=== PATIENT | male | born 1950 | race Caucasian/White ===

== ENCOUNTER 2023-06-24 12:03 | Outpatient (CLI) | payer MEDICARE, SELFPAY ==
--- NOTE | 2023-06-24 12:09 | MR_ITS ---
WS: [email or web address] MRI LUMBAR SPINE NONCONTRAST HISTORY: WEAKNESS/FALLING COMPARISON: None available. TECHNIQUE: Sagittal and axial multisequence imaging is submitted. Normal lumbar alignment with no compression fractures or marrow edema. Disc spaces and vertebral body heights are well-preserved. Conus terminates normally at L1-2 disc level. L1-L2: Normal. L2-L3: Normal. L3-L4: Mild bilateral facet arthritis. No disc protrusion or stenosis. L4-L5: Mild annular disc bulging contacting but not displacing the traversing L5 nerve roots. Mild rhoades barticular recess encroachment and mild facet arthritis. L5-S1: Mild annular disc bulging with a central disc protrusion. Mild bilateral facet arthritis. Mild bilateral foraminal stenosis. Parapelvic renal cysts. Mild atherosclerosis aorta. MR/MR lumbar spine wo con* [id number] IMPRESSION: 1. No high-grade central or foraminal stenosis. 2. L4-5: Annular disc bulging contacting but not displacing the traversing L5 nerve roots with mild subarticular recess encroachment. 3. L5-S1: Mild facet arthritis with mild bilateral foraminal stenosis.
--- NOTE | 2023-06-24 12:09 | MR_ITS ---
WS: [email or web address] MRA CAROTID ARTERIES HISTORY: WEAKNESS/ANEURYSM COMPARISON: None available. TECHNIQUE: MRA is performed with intravenous gadolinium. MIP and source images are reviewed. Right: Normal cervical carotid artery. There is no stenosis or significant plaque in the internal or external carotid artery. Left: Normal cervical carotid artery. No stenosis or significant plaque in the internal or external c arotid artery. Subclavian Arteries: Both visualized. No stenosis. Vertebral Arteries: Normal. MR/MR angio neck w con* [id number] IMPRESSION: No significant carotid artery stenosis.
--- NOTE | 2023-06-24 12:09 | MR_ITS ---
WS: [email or web address] MRI THORACIC SPINE noncontrast. HISTORY: WEAKNESS/FALLING COMPARISON: None available. TECHNIQUE: Multiplanar sequences are performed in sagittal and axial planes. Slight increase in thoracic kyphosis in the upper spine. Disc bases are narrowed and desiccated. Ther e is no cord compression or significant disc protrusion contacting the cord. Very mild osteophytosis. Signal within the cord is normal. There is a small amount of increased T2 signal in the mid to lower thoracic cord. I do not believe this is a syrinx. Suspect this is probably truncation artifact. MR/MR thoracic spin wo con* [id number] IMPRESSION: Mild thoracic spondylosis. No disc protrusions or stenosis.
--- NOTE | 2023-06-24 12:09 | MR_ITS ---
WS: [email or web address] MRI CERVICAL SPINE NONCONTRAST HISTORY: WEAKNESS/FALLING COMPARISON: None available. Technique: Multiplanar, multisequence noncontrast imaging of the cervical spine. Increasing cervical lordosis. 2 mm retrolisthesis of C4 and C5. Disc spaces are moderately narrowed. Small amount of reactive edema along the endplates of C4 and C5. Signal within the cervical cord is normal. Visualized posterior fossa is unremarkable. Craniocervical junction, C1 and C2 relationship, odontoid process and soft tissues are normal. C2-C3: Normal. C3-C4: Mild disc bulging and facet arthritis. Mild RIGHT foraminal stenosis. C4-C5: Diffuse osteophytic ridging and annular disc bulging effacing ventral CSF. Mild central with m ild to moderate bilateral foraminal stenosis, LEFT greater than RIGHT. C5-C6: Osteophytic ridging and annular disc bulging. Mild central with moderate LEFT and mild RIGHT f oraminal stenosis. C6-C7: Diffuse osteophytic ridging and annular disc bulging. Mild central and bilateral foraminal angela nosis. C7-T1: Normal. Paraspinal soft tissue are normal. MR/MR cervical spin wo con* [id number] IMPRESSION: 1. Multilevel cervical stenoses and spondylosis. Multilevel degenerative disc disease with osteophytosis and facet joint arthritis. 2. C4-5: Mild central with mild to moderate bilateral foraminal stenosis, LEFT greater than RIGHT. 3. C5-6: Mild central with moderate LEFT and mild RIGHT foraminal stenosis. 4. C6-7: Mild central and bilateral foraminal stenosis.
[2023-06-24] MEDS: gadobenate dimeglumine 20 mL vial IV (14:31)
== END 2023-06-24 12:04 | disposition home or self-care (01) ==
LOC: RAD 12:05
PROVIDERS: PCP Family Medicine; Visit Provider Psychiatry & Neurology Neurology
DX: R53.1 Weakness (principal); M47.892 Other spondylosis, cervical region; M25.78 Osteophyte, vertebrae; M51.36 Other intervertebral disc degeneration, lumbar region; M48.02 Spinal stenosis, cervical region; M50.321 Other cervical disc degeneration at C4-C5 level; M50.322 Other cervical disc degeneration at C5-C6 level; M50.323 Other cervical disc degeneration at C6-C7 level
CPT/HCPCS: 70548; 72141; 72146; 72148; A9577

== ENCOUNTER → 2023-07-21 12:59 | Outpatient (BNVA) | payer MEDICARE, MEDICAID, SELFPAY | PROVIDERS: PCP Family Medicine; Visit Provider Psychiatry & Neurology Neurology | DX: R26.0 Ataxic gait (principal) | CPT/HCPCS: 99212 ==

== ENCOUNTER → 2023-08-05 12:39 | Outpatient (BNVA) | payer MEDICARE, MEDICAID, SELFPAY | PROVIDERS: PCP Family Medicine; Visit Provider Orthopaedic Surgery | DX: M47.812 Spondylosis without myelopathy or radiculopathy, cervical region (principal); M54.2 Cervicalgia | CPT/HCPCS: 72050; 99214 ==

== ENCOUNTER → 2023-11-15 14:43 | Outpatient (BNVA) | payer MEDICARE, MEDICAID, SELFPAY | PROVIDERS: PCP Family Medicine; Referring Provider Orthopaedic Surgery; Visit Provider Psychiatry & Neurology Neurology | DX: M47.812 Spondylosis without myelopathy or radiculopathy, cervical region (principal); R29.898 Other symptoms and signs involving the musculoskeletal system; R29.2 Abnormal reflex; R29.818 Other symptoms and signs involving the nervous system; R26.0 Ataxic gait; D64.9 Anemia, unspecified; R29.90 Unspecified symptoms and signs involving the nervous system | CPT/HCPCS: 36415; 82550; 82746; 83735; 83921; 85651; 86160; 86162; 86235; 86255; 86376; 86617; 99212; 99214 ==

== ENCOUNTER → 2024-01-13 14:35 | Outpatient (BNVA) | payer MEDICARE, MEDICAID, SELFPAY | PROVIDERS: PCP Family Medicine; Referring Provider Psychiatry & Neurology Neurology; Visit Provider Psychiatry & Neurology Neurology | DX: M47.812 Spondylosis without myelopathy or radiculopathy, cervical region (principal); R29.898 Other symptoms and signs involving the musculoskeletal system | CPT/HCPCS: 95911 ==

== ENCOUNTER → 2024-07-25 15:33 | Outpatient (BNVA) | payer MEDICARE, MEDICAID, SELFPAY | PROVIDERS: PCP Family Medicine; Visit Provider Psychiatry & Neurology Neurology | DX: M47.812 Spondylosis without myelopathy or radiculopathy, cervical region (principal); R29.898 Other symptoms and signs involving the musculoskeletal system; R29.2 Abnormal reflex; R29.818 Other symptoms and signs involving the nervous system; R26.0 Ataxic gait; D64.9 Anemia, unspecified; R29.90 Unspecified symptoms and signs involving the nervous system | CPT/HCPCS: 99212 ==